=== PATIENT | male | born 1945 | race Caucasian/White ===

== ENCOUNTER 2018-07-27 00:08 | Emergency (ER) | payer BC ==
[~2018-07-27] VITALS: Ht 167.6 cm; Wt 108.9 kg
[~2018-07-27 00:08] MED LIST: ASA5UEC; FOLIC ACID1 MG; PROAIR HFA8.5 GM PO; TMP-POLYMYXIN B10 ML OP; TREXALL5 MG
[2018-07-27] MEDS ORDERED: HYDROCODONE-AP1 EAC6 PO (00:28)
[2018-07-27] MEDS ORDERED: METFORMIN HCL500 MG PO (00:30)
[2018-07-27] MEDS ORDERED: VALIUM5 MG PO (00:58)
[2018-07-27 01:09] VITALS: BP 145/70
== END 2018-07-27 01:11 | disposition home or self-care (01) ==
LOC: M.ERS 00:08
DX: S39.011A Strain of muscle, fascia and tendon of abdomen, initial encounter (principal); X58.XXXA Exposure to other specified factors, initial encounter; Y93.89 Activity, other specified; Y92.89 Other specified places as the place of occurrence of the external cause; Y99.8 Other external cause status; I10 Essential (primary) hypertension; E11.9 Type 2 diabetes mellitus without complications; Z88.0 Allergy status to penicillin